=== PATIENT | male | born 1955 | race Caucasian/White ===

== ENCOUNTER 2024-12-26 16:21 | Emergency (ER) | payer MEDICARE, BC, SELFPAY ==
[2024-12-26] VITALS (12 sets, daily range): BP systolic 142–182; BP diastolic 66–84; PULSE 62–80; RESP 16; TEMP 36.9; O2SAT 95–97; BMI 30.8
--- NOTE | 2024-12-26 17:01 | DI.CT.S_ITS ---
PROCEDURE: CT HEAD/BRAIN WO CON INDICATIONS: per Eye MD r/o cavernous sinus thrombosis or septic thromb TECHNIQUE: Noncontrast 4.5 mm thick angled axial sections acquired from the foramen magnum to the vertex, with coronal and sagittal reformats. For radiation dose reduction, the following was used: automated exposure control, adjustment of mA and/or kV according to patient size. COMPARISON: [facility], MR, MR ANGIO HEAD WO CON, 12/26/2024, 8:43. Merged With [facility], MR, MR OPTIC NRV WWO CON, 12/26/2024, 8:57. Merged With [facility], CT, CT ANGIO HEAD AND NECK, 12/26/2024, 17:10. FINDINGS: Image quality: Diagnostic. CSF spaces: Basal cisterns are patent. No extra-axial fluid collections. The ventricles are symmetric in size and shape. Brain: No intracranial bleeds or mass effect. There is cerebral volume loss, with resultant ventricular and sulcal prominence. There are periventricular and deep white matter chronic small vessel ischemic changes. There is intracranial internal carotid artery atherosclerosis. Skull and face: Calvarium and visualized facial bones appear intact, without suspicious lesions. Prominence of the right superior ophthalmic vein is seen, which is better demonstrated on the prior MRI. Sinuses: Visualized sinuses and mastoids are clear. IMPRESSION: No acute intracranial pathology. Dictated by: Loyd Zendejas M.D. on 12/26/2024 at 17:43 Approved by: Loyd Zendejas M.D. on 12/26/2024 at 17:44
--- NOTE | 2024-12-26 17:01 | DI.CT.S_ITS ---
PROCEDURE: CT ANGIO HEAD AND NECK INDICATIONS: superior ophthalmic vein prominent suspicious for fill defect TECHNIQUE: After the administration of intravenous contrast, 1 mm thick sections acquired from the aortic arch through the [place]. 3-dimensional aajujie-gcdbmmqjo-qrigvkcjac (MIP) and/or volume rendering reformats were acquired of the central intracranial vasculature and neck separately. For radiation dose reduction, the following was used: automated exposure control, adjustment of mA and/or kV according to patient size. COMPARISON: [facility], CT, CT HEAD/BRAIN WO CON, 12/26/2024, 17:10. [facility], MR, MR OPTIC NRV WWO CON, 12/26/2024, 8:57. [facility], MR, MR ANGIO HEAD WO CON, 12/26/2024, 8:43. FINDINGS: Image quality: Diagnostic. Cerebral CT Angiogram: Internal carotid arteries: No acute findings. Intracranial ICA are patent with no significant stenosis. No occlusion. No aneurysm. Anterior cerebral arteries: Unremarkable. No significant stenosis. No occlusion. No aneurysm. Middle cerebral arteries: Unremarkable. No significant stenosis. No occlusion. No aneurysm. Posterior cerebral arteries: Unremarkable. No significant stenosis. No occlusion. No aneurysm. Basilar artery: Unremarkable. No significant stenosis. No occlusion. No aneurysm. Vertebral arteries: Unremarkable as visualized. Dural venous sinuses: Unremarkable given phase of enhancement. Other: Arterial phase appearance of the brain parenchyma is unremarkable. The right superior ophthalmic vein is abnormally prominent, as seen on series 2 image 141 and on series 3, image 54. No filling defect can be seen within it. There is increased vascularity seen within the left medial periorbital soft tissues, as on series 2, images 149-151. Neck CT Angiogram: Internal carotid arteries: Unremarkable. No significant stenosis. No dissection or occlusion. Common carotid arteries: Unremarkable. No significant stenosis. No dissection or occlusion. External carotid arteries: Unremarkable. No occlusion. Vertebral arteries: Unremarkable. No significant stenosis. No dissection or occlusion. Aortic Arch and Mediastinum: Partially visualized aortic arch unremarkable without evidence of aneurysm. Origins of the great vessels unremarkable. Other: Arterial phase soft tissues of the neck and chest are unremarkable. IMPRESSION: The right superior ophthalmic vein is abnormally dilated. No filling defect can be seen within it. Although this was previously described as being related to a venous thrombosis, this has the appearance of an abnormally engorged vein on the current study. Please consider regional AVM. - Please consider a referral to a neuro interventionalist for a catheter based angiogram No significant additional intracranial arterial abnormality is seen. No significant abnormality is seen within the arteries of the neck. Any quantitative measurements of stenosis were performed using NASCET criteria. Dictated by: Loyd Zendejas M.D. on 12/26/2024 at 17:44 Approved by: Loyd Zendejas M.D. on 12/26/2024 at 17:48
--- NOTE | 2024-12-26 17:16 | ED.EYEPROB ---
HPI - Eye Problem General Chief complaint: Eye Problems Stated complaint: eye pain x fuzzy vision pcp ref Time Seen by Provider: 12/26/24 16:29 Source: patient Mode of arrival: Ambulatory History of Present Illness HPI Narrative: 69-year-old gentleman history of type 2 diabetes dyslipidemia hypertension developed a right infection over a year ago treated with antibiotic eyedrops for which he has since then seen right eye double vision initially when he wakes up in the morning for the past year and start to slowly improve over the course of the day. He was seen by the eye doctor a month ago for annual follow up for which they saw new changes and ordered an MRI for which showed today right superior ophthalmic vein is abnormally prominent the coronal postcontrast appearance is suspicious for a filling defect within it. The eye doctor states the MRI report does not mention cavernous sinuses looking at optic nerve only and need to check for cavernous sinus infection, Caroticocavernosa fistula, Hannah Costa syndrome and recommends contrast-enhanced CT at this time. Patient is otherwise asymptomatic at this time head to toe with no obvious complaints. Other than what is stated 14 point review of system is negative. Related Data Previous Rx's ?Medication ?Instructions ?Recorded diltiazem HCl 240 mg 0 PO QDAY #90 tabs 09/25/16 capsule,extended release 24 hr fenofibrate 160 mg tablet 160 mg PO QDAY #90 tabs 09/25/16 lisinopril 20 0 PO QDAY #90 tabs 09/25/16 mg-hydrochlorothiazide 25 mg tablet rosuvastatin 40 mg tablet 0 PO HS #90 tabs 09/25/16 sitagliptin phos 50 mg-metformin 1 tab PO QDAY #90 tabs 09/27/16 ER 1,000 mg tablet,extend rel 24h mp (Janumet XR) Allergies Allergy/AdvReac Type Severity Reaction Status Date / Time No Known Drug Allergies (NO Allergy Unknown Verified 12/26/24 16:25 KNOWN DRUG ALLERGIES) Review of Systems Review of Systems ROS Unobtainable: All systems reviewed & are unremarkable except as noted in HPI and below Patient History Social History Smoking Status: Never smoker Smoking Status: Never smoker Alcohol type: beer and wine Exam Narrative Exam Narrative: GENERAL: [69] year old patient appears stated age. Well-developed patient, in mild distress. HEAD: Atraumatic. Normocephalic. EYES: Pupils equal round and reactive. Extraocular motions intact. No scleral icterus. No injection or drainage. ENT: Nose without bleeding, purulent drainage. Throat without erythema, tonsillar hypertrophy or exudate. Airway patent. NECK: Trachea midline. Non tender CARDIOVASCULAR: Regular rate and rhythm without murmurs, gallops, or rubs. RESPIRATORY: Clear to auscultation. Breath sounds equal bilaterally. No wheezes, rales, or rhonchi. GASTROINTESTINAL: Abdomen soft, non-tender, nondistended. EXTREMITIES: No edema or joint tenderness. BACK: Nontender without deformity or crepitance. No flank tenderness. NEURO: AOx3. SKIN: No rash or erythema of visible areas Initial Vital Signs Initial Vital Signs: Vital Signs Temperature 98.4 F 12/26/24 16:25 Pulse Rate 80 12/26/24 16:25 Respiratory Rate 16 12/26/24 16:25 Blood Pressure 182/84 H 12/26/24 16:25 Pulse Oximetry 97 12/26/24 16:25 Oxygen Delivery Method Room Air 12/26/24 16:25 Course Orders Ordered: ED Orders 12/26/24 17:01 CT angio head and neck Stat CT head/brain wo con Stat 12/26/24 18:00 CBC Auto Diff [Complete Blood Count AUTO DIFF] Stat CMP [Comprehensive Metabolic Panel] Stat Erythrocyte Sedimentation Rate Stat Lactate (Lactic Acid) Stat 12/26/24 19:29 Blood Culture Stat Vital Signs Vital signs: Vital Signs - 8 hr 12/26/24 16:25 12/26/24 16:58 12/26/24 17:00 Temperature 98.4 F Pulse Rate 80 68 66 Respiratory Rate 16 Blood Pressure 182/84 H Pulse Oximetry 97 95 96 Oxygen Delivery Method Room Air 12/26/24 18:00 12/26/24 18:00 12/26/24 18:30 Temperature Pulse Rate 71 64 Respiratory Rate Blood Pressure 158/75 H Pulse Oximetry 96 97 Oxygen Delivery Method 12/26/24 19:00 12/26/24 19:40 12/26/24 19:41 Temperature Pulse Rate 62 68 Respiratory Rate 16 Blood Pressure 153/69 H 153/69 H Pulse Oximetry 96 97 Oxygen Delivery Method 12/26/24 19:41 12/26/24 20:00 12/26/24 20:00 Temperature Pulse Rate 67 65 Respiratory Rate Blood Pressure 145/70 H Pulse Oximetry 96 97 Oxygen Delivery Method 12/26/24 20:30 12/26/24 20:30 12/26/24 21:00 Temperature Pulse Rate 72 63 Respiratory Rate Blood Pressure 142/66 H Pulse Oximetry 96 96 Oxygen Delivery Method 12/26/24 21:00 Temperature Pulse Rate Respiratory Rate Blood Pressure 146/67 H Pulse Oximetry Oxygen Delivery Method MDM - Eye Problem Lab Data 12/26/24 18:00 12/26/24 18:00 Labs: Lab Results 12/26/24 Range/Units 18:00 WBC 5.3 (4.5-11.0) X10^3/uL RBC 4.32 L (4.5-5.9) X10^6/uL Hgb 13.0 L (13.5-17.5) g/dL Hct 37.7 L (41-53) % MCV 87.4 (80-100) fL MCH 30.0 (26-34) PG MCHC 34.3 (30-36) % RDW 14.0 (11.6-14.8) % Plt Count 202 (150-400) X10^3/uL Neut % (Auto) 75.3 H (50-75) % Lymph % (Auto) 17.4 L (25-40) % Mcdonald % (Auto) 6.0 (3-14) % Eos % (Auto) 0.8 L (2-4) % Baso % (Auto) 0.5 (0-2) % Neut # (Auto) 4000 (2551-7574) /uL Lymph # (Auto) 900 L (0853-3292) /uL Mcdonald # (Auto) 300 (0-900) /uL Eos # (Auto) 0 (0-450) /uL Baso # (Auto) 0 (0-100) /uL ESR 12 (0-15) MM/HR Sodium 140 (137-145) mmol/L Potassium 4.4 (3.4-5.1) mmol/L Chloride 108 H (98-107) mmol/L Carbon Dioxide 21 L (22-32) mmol/L BUN 20 (9-20) mg/dL Creatinine 1.15 (0.66-1.25) mg/dL Estimated GFR > 60 (>60) mL/min BUN/Creatinine Ratio 17.4 (6-22) Glucose 119 H (70-99) mg/dL Lactate 1.4 (0.7-2.1) mmol/L Calcium 9.1 (8.4-10.2) mg/dL Total Bilirubin 0.4 (0.2-1.3) mg/dL AST 31 (17-59) IU/L ALT 24 (<50) IU/L Alkaline Phosphatase 55 (38-126) U/L Total Protein 7.2 (6.3-8.2) g/dL Albumin 4.5 (3.5-5.0) g/dL Globulin 2.7 (1.7-4.1) g/dL Albumin/Globulin Ratio 1.7 (1.0-2.8) Imaging Data CT scan - head: Radiologist's Impression: [address] [address] [address] Scan Report Signed Patient: Ubaldo Guerra MR#: [id number] : 1955 Acct:[id number] Age/Sex: 69 / M Date of Service: 12/26/24 Loc: ED Accession Number: [id number] Procedure: CT head/brain wo con Ordering Provider: Mitchell Flores D.O. PROCEDURE: CT HEAD/BRAIN WO CON INDICATIONS: per Eye MD r/o cavernous sinus thrombosis or septic thromb TECHNIQUE: Noncontrast 4.5 mm thick angled axial sections acquired from the foramen magnum to the vertex, with coronal and sagittal reformats. For radiation dose reduction, the following was used: automated exposure control, adjustment of mA and/or kV according to patient size. COMPARISON: [facility], MR, MR ANGIO HEAD WO CON, 12/26/2024, 8:43. [facility], MR, MR OPTIC NRV WWO CON, 12/26/2024, 8:57. [facility], CT, CT ANGIO HEAD AND NECK, 12/26/2024, 17:10. FINDINGS: Image quality: Diagnostic. CSF spaces: Basal cisterns are patent. No extra-axial fluid collections. The ventricles are symmetric in size and shape. Brain: No intracranial bleeds or mass effect. There is cerebral volume loss, with resultant ventricular and sulcal prominence. There are periventricular and deep white matter chronic small vessel ischemic changes. There is intracranial internal carotid artery atherosclerosis. Skull and face: Calvarium and visualized facial bones appear intact, without suspicious lesions. Prominence of the right superior ophthalmic vein is seen, which is better demonstrated on the prior MRI. Sinuses: Visualized sinuses and mastoids are clear. IMPRESSION: No acute intracranial pathology. CTA - brain/neck: Radiologist's Impression: [address] [address] [address] Scan Report Signed Patient: Ubaldo Guerra MR#: [id number] : 1955 Acct:[id number] Age/Sex: 69 / M Date of Service: 12/26/24 Loc: ED Accession Number: [id number] Procedure: CT angio head and neck Ordering Provider: Mitchell Flores D.O. PROCEDURE: CT ANGIO HEAD AND NECK INDICATIONS: superior ophthalmic vein prominent suspicious for fill defect TECHNIQUE: After the administration of intravenous contrast, 1 mm thick sections acquired from the aortic arch through the [place]. 3-dimensional foozcmq-zsthqybiw-heymsdrxge (MIP) and/or volume rendering reformats were acquired of the central intracranial vasculature and neck separately. For radiation dose reduction, the following was used: automated exposure control, adjustment of mA and/or kV according to patient size. COMPARISON: [facility], CT, CT HEAD/BRAIN WO CON, 12/26/2024, 17:10. [facility], MR, MR OPTIC NRV WWO CON, 12/26/2024, 8:57. [facility], MR, MR ANGIO HEAD WO CON, 12/26/2024, 8:43. FINDINGS: Image quality: Diagnostic. Cerebral CT Angiogram: Internal carotid arteries: No acute findings. Intracranial ICA are patent with no significant stenosis. No occlusion. No aneurysm. Anterior cerebral arteries: Unremarkable. No significant stenosis. No occlusion. No aneurysm. Middle cerebral arteries: Unremarkable. No significant stenosis. No occlusion. No aneurysm. Posterior cerebral arteries: Unremarkable. No significant stenosis. No occlusion. No aneurysm. Basilar artery: Unremarkable. No significant stenosis. No occlusion. No aneurysm. Vertebral arteries: Unremarkable as visualized. Dural venous sinuses: Unremarkable given phase of enhancement. Other: Arterial phase appearance of the brain parenchyma is unremarkable. The right superior ophthalmic vein is abnormally prominent, as seen on series 2 image 141 and on series 3, image 54. No filling defect can be seen within it. There is increased vascularity seen within the left medial periorbital soft tissues, as on series 2, images 149-151. Neck CT Angiogram: Internal carotid arteries: Unremarkable. No significant stenosis. No dissection or occlusion. Common carotid arteries: Unremarkable. No significant stenosis. No dissection or occlusion. External carotid arteries: Unremarkable. No occlusion. Vertebral arteries: Unremarkable. No significant stenosis. No dissection or occlusion. Aortic Arch and Mediastinum: Partially visualized aortic arch unremarkable without evidence of aneurysm. Origins of the great vessels unremarkable. Other: Arterial phase soft tissues of the neck and chest are unremarkable. IMPRESSION: The right superior ophthalmic vein is abnormally dilated. No filling defect can be seen within it. Although this was previously described as being related to a venous thrombosis, this has the appearance of an abnormally engorged vein on the current study. Please consider regional AVM. - Please consider a referral to a neuro interventionalist for a catheter based angiogram No significant additional intracranial arterial abnormality is seen. MDM Narrative Medical decision making narrative: All lab work, vital signs, nurse triage note, medication list, previous ER visits, and all imaging studies reviewed. CTA head and neck showed right superior ophthalmic vein is abnormally dilated. No filling. Defect can be seen within it although this was previously described as being related to a venous thrombosis this has the appearance of an abnormally engorged vein on the current study. Please consider regional AVM. Please consider referral to a neuro interventionalist for catheter based angiogram. No significant additional intracranial. Arterial abnormality seen no significant abnormality is seen within the arteries of the neck. CT head showed no acute intracranial pathology. WBC 5.3 hemoglobin 13 platelet 202 sodium 140 potassium 4.4 chloride 108 CO2 21 BUN 20 creatinine 1.15 glucose 119 lactic acid 1.4 LFTs normal ESR 12. Case d/w Dr.Khote Erika DUARTE who stated this is a ophthalmology case and to speak with the scaffolder for which I spoke with was finally accepted the patient to [facility]. 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 MRA brain showed no significant arterial abnormalities Discharge Plan Departure Patient Disposition: [facility] Clinical Impression: Ophthalmologic abnormality Prescriptions: No Action diltiazem HCl 240 MG capsule,extended release 24hr 0 PO QDAY Qty: 90 1RF rosuvastatin 40 MG tablet 0 PO HS Qty: 90 1RF fenofibrate 160 MG tablet 160 mg PO QDAY Qty: 90 1RF lisinopril-hydrochlorothiazide 20 MG/25 MG tablet 0 PO QDAY Qty: 90 1RF sitagliptin phos-metformin [Janumet XR] 50 MG/1,000 MG tablet, ER multiphase 24 hr 1 tab PO QDAY Qty: 90 1RF
[2024-12-26 18:10] LABS: Add Manual Diff / Slide Review NO; Hematocrit 37.7 % (41-53); Hemoglobin 13.0 g/dL (13.5-17.5); Lymphocytes Absolute Auto 900 /uL (1100-4500); Mean Corpuscular HGB Conc 34.3 % (30-36); Mean Corpuscular Hemoglobin 30.0 PG (26-34); Mean Corpuscular Volume 87.4 fL (80-100); Platelet Count 202 X10^3/uL (150-400)
[2024-12-26 18:22] LABS: Alanine Aminotransferase 24 IU/L (<50); Albumin 4.5 g/dL (3.5-5.0); Albumin Globulin Ratio 1.7 (1.0-2.8); Alkaline Phosphatase 55 U/L (38-126); Blood Urea Nitrogen 20 mg/dL (9-20); Calcium 9.1 mg/dL (8.4-10.2); Carbon Dioxide 21 mmol/L (22-32); Chloride 108 mmol/L (98-107); Estimated Glomerular Filt Rate > 60 mL/min (>60); Globulin 2.7 g/dL (1.7-4.1); Glucose 119 mg/dL (70-99); HEMOLYSIS < 15 (0-50); Potassium 4.4 mmol/L (3.4-5.1); Sodium 140 mmol/L (137-145); Total Protein 7.2 g/dL (6.3-8.2)
[2024-12-26 18:23] LABS: Lactate (Lactic Acid) 1.4 mmol/L (0.7-2.1)
== END 2024-12-26 22:20 | disposition short-term general hospital (02) ==
PROVIDERS: Emergency Provider Family Medicine
DX: Q15.9 Congenital malformation of eye, unspecified (principal); H02.411 Mechanical ptosis of right eyelid; H11.431 Conjunctival hyperemia, right eye; H53.2 Diplopia
CPT/HCPCS: 36415; 70450; 70496; 70498; 70543; 70544; 70553; 80053; 83605; 85025; 85651; 87040; 99281; 99284; A9579; Q9967

== ENCOUNTER → 2024-12-26 | Outpatient (CLI) | payer MEDICARE, SELFPAY ==
--- NOTE | 2024-12-26 08:00 | DI.MRI.S_ITS ---
PROCEDURE: MR ANGIO HEAD WO CON INDICATIONS: Diplopia TECHNIQUE: Noncontrast axial 3-D hcch-ap-lrejks MR angiogram, with 3-dimensional maximum intensity projection (MIP) reformats of the internal carotid arteries and posterior circulation then performed. COMPARISON: None. FINDINGS: Image quality: Excellent. Anterior circulation: Intracranial internal carotid arteries demonstrate normal size and intraluminal flow signal. The flow within the paired anterior cerebral arteries is normal and symmetric. The flow within the middle cerebral arteries is normal and symmetric. The anterior communicating artery is seen. No stenoses, occlusions, or aneurysms. Posterior circulation: Visualized portions of the vertebral arteries demonstrate normal caliber, and join to form a normal appearing basilar artery. The flow within the posterior cerebral arteries is normal and symmetric. No stenoses, occlusions, or aneurysms. IMPRESSION: No significant arterial abnormalities are identified. Dictated by: Rickey Amin M.D. on 12/26/2024 at 10:43 Approved by: Rickey Amin M.D. on 12/26/2024 at 10:44
--- NOTE | 2024-12-26 08:06 | DI.MRI.S_ITS ---
PROCEDURE: MR OPTIC NRV WWO CON INDICATIONS: Diplopia TECHNIQUE: Noncontrast sagittal T1 spin echo, axial FLAIR, axial gradient echo, axial diffusion and ADC acquired through the brain. Coronal STIR, thin-slice axial T1 spin echo through the orbits. After the administration of contrast, thin-slice axial and coronal T1 spin echo with fat saturation through the orbits, axial and coronal and sagittal T1 spin echo with fat saturation through the brain. COMPARISON: [facility], MR, MR ANGIO HEAD WO CON, 12/26/2024, 8:43. FINDINGS: Image quality: Excellent. Orbits: The right superior ophthalmic vein is abnormally prominent, as seen on series 12, image 11 and on series 13, image 9. The coronal postcontrast appearance is suspicious for a filling defect within it. Globes are symmetrical. The optic nerves are normal in size, without abnormal signal or enhancement. No abnormal fluid can be seen along the optic nerves. No retrobulbar masses or fat abnormalities. The extra-ocular muscles are normal and symmetric in appearance. Lacrimal glands are normal. Optic chiasm is normal. Periorbital soft tissues appear normal. CSF spaces: Ventricles are normal in size and shape. Basal cisterns are patent. No extra-axial fluid collections. Brain: No intracranial bleeds or mass effects. No abnormal intracranial enhancement. Shelton-white matter interface is intact. Diffusion weighted images demonstrate no acute ischemic insults. Pituitary gland appears normal, without sellar or suprasellar masses. Brainstem appears normal. Normal intravascular flow voids are present. Skull and face: Calvarial marrow is normal in signal. Sinuses: There is a mucous retention cyst seen within the right maxillary sinus. Minimal scattered mucosal thickening can be seen within the paranasal sinuses. No abnormal fluid is seen within the mastoid air cells. 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 Dictated by: Loyd Zendejas M.D. on 12/26/2024 at 11:10 Approved by: Loyd Zendejas M.D. on 12/26/2024 at 11:27
== END ==
PROVIDERS: Referring Provider Optometrist; Visit Provider Optometrist
DX: H02.411 Mechanical ptosis of right eyelid (principal); H11.431 Conjunctival hyperemia, right eye; H53.2 Diplopia
CPT/HCPCS: 70543; 70544; 70553; A9579